=== PATIENT | female | born 1955 | race Caucasian/White ===

== ENCOUNTER → 2016-10-07 | Outpatient (CLI) | payer OTHER ==
[2016-10-11 16:05] LABS: HPV 16 Not Detected (NOTDET); HPV 18 Not Detected (NOTDET)
== END ==
LOC: MW.CHOBGYN 13:46
PROVIDERS: ATTEND Nurse Practitioner Women's Health
DX: Z11.51 Encounter for screening for human papillomavirus (HPV) (principal); E03.9 Hypothyroidism, unspecified
CPT/HCPCS: 36415; 80053; 84443; 85025; 87624; G0145

== ENCOUNTER → 2016-10-13 | Outpatient (CLI) | payer OTHER | LOC: MW.CHOBGYN 13:39 | PROVIDERS: ATTEND Nurse Practitioner Women's Health | DX: R68.89 Other general symptoms and signs (principal) | CPT/HCPCS: 36415; 80061; 82384; 83835 ==

== ENCOUNTER → 2016-11-17 | Outpatient (CLI) | payer OTHER ==
--- NOTE | 2016-11-18 10:10 | MY ---
EXAMINATION: Bilateral digital mammography utilizing CAD. HISTORY: Screening exam. Comparison is made to previous studies dated 11/13/2015, 11/07/2014, , 02/19/2012. FINDINGS: Bilateral heterogeneously dense breast tissue. No suspicious calcifications, masses or architectural distortions. No pathologic appearing lymph nodes, no abnormal skin thickening or nipple inversion. CAD highlighted regions appear normal at this time. IMPRESSION: BI-RADS category I - negative mammogram. Continued screening according to ACR-ACS guidelines liz melo. THE FALSE-NEGATIVE RATE OF MAMMOGRAM IS APPROXIMATELY 10%. MANAGEMENT OF A PALPABLE ABNORMALITY MUST BE BASED UPON CLINICAL GROUNDS. SENSITIVITY FOR DETECTION OF ABNORMALITIES IN DENSE BREASTS IS LOW. NOTE: A letter will be sent to the patient regarding findings. [facility] -- HANNA Heath [phone] - FAX [phone]
== END ==
LOC: MW.MAM 11:25
PROVIDERS: ATTEND Nurse Practitioner Women's Health
DX: Z12.31 Encounter for screening mammogram for malignant neoplasm of breast (principal)
CPT/HCPCS: G0202; G0202-26

== ENCOUNTER 2017-01-21 15:02 | Emergency (ER) | payer OTHER ==
[2017-01-21] MEDS ORDERED: Diphtheria,Pertussis(Acell),Tetanus Vaccine 0.5 ML Syringe IM ONE (15:27)
[2017-01-21] MEDS ORDERED: Bacitracin Oint 1 GM U/D Packet TOP ONE (15:28)
[2017-01-21] MEDS ORDERED: Lidocaine 1% 20 ML MDV INJECT ONE (15:28)
--- NOTE | 2017-01-21 15:35 | EDM.PDOC ---
ED HPI GENERAL MEDICAL PROBLEM - General Chief Complaint: Upper Extremity Injury/Pain Stated Complaint: LACERATION LT INDEX FINGER Time Seen by Provider: 01/21/17 15:20 - History of Present Illness INITIAL COMMENTS - FREE TEXT/NARRATIVE: HISTORY AND PHYSICAL: History of present illness: Patient is a 61-year-old female who presents with complaints of injury to her left index finger with a needle from a sewing machine. This injury does happen prior to arrival when she was using the machine and the needle went into her finger and she immediately pulled it out. She is concerned because the nail is somewhat disrupted and she has discomfort to the area. She is right-hand dominant and has no other injuries on the remainder of the digits or the hand of the left. She is not sure of her last tetanus shot. She is able to range of motion at the finger without issues. Review of systems: As per history of present illness and below otherwise all systems reviewed and negative. Past medical history: As per history of present illness and as reviewed below otherwise noncontributory. Surgical history: As per history of present illness and as reviewed below otherwise noncontributory. Social history: No reported history of drug or alcohol abuse. Family history: As per history of present illness and as reviewed below otherwise noncontributory. Physical exam: General: Well-developed well-nourished female is nontoxic and speaking clearly and easily in the ED HEENT: Atraumatic, normocephalic, negative for conjunctival pallor or scleral icterus, mucous membranes moist, throat clear, neck supple, nontender, trachea midline. Lungs: Clear to auscultation, breath sounds equal bilaterally, chest nontender. Heart: S1S2, regular rate and rhythm no overt murmurs Abdomen: Deferred Pelvis: Deferred Genitourinary: Deferred. Rectal: Deferred. Extremities: Atraumatic with full range of motion of all extremities with the exception of the left index finger where there is a disruption of the nail at the lateral aspect approximately 1/5 of the nail but does not involve the nail base and there is a superficial appearing soft tissue tuft laceration approximately 0.5 cm. There is no active bleeding and she has full range of motion at the digit. There is no palpable bony deformities and no gross soft tissue swelling. The legs are, negative for cords or calf pain. Neurovascular unremarkable. Neuro: Awake, alert, oriented. Cranial nerves II through XII unremarkable. Cerebellum unremarkable. Motor and sensory unremarkable throughout. Exam nonfocal. Diagnostics: X-ray of the left index finger Therapeutics: Tdap, wound care Procedure note: After the procedure was explained to the patient the area was prepped with that a 9 and 1% lidocaine without epinephrine was placed in a digital block fashion. The wound was reexplored and using sharp dissection the nail was lifted from the underlying adherent tissue and removed. At that point it was noted that there is a laceration in the nail bed approximately 1 cm that extends around the top of the tuft of the soft tissue for a total length of 1.5cm. #1 suture 5-0 nylon was placed in the soft tissue which reapproximated all the tissue and bleeding stopped with that. All of the skin edges were reapproximated well and bacitracin and a tube gauze was applied. Patient tolerated the procedure well and there are no complications. Impression: Puncture laceration wound of the left index finger with partial nail loss Definitive disposition and diagnosis as appropriate pending reevaluation and review of above. left index finger Pain Score (Numeric/FACES): 5 - Related Data Allergies Allergy/AdvReac Type Severity Reaction Status Date / Time No Known Allergies Allergy Verified 01/21/17 15:05 Home Meds: Home Meds Calcium Carbonate/Vitamin D3 [Calcium 600 + Vit D 400] 1 tab PO DAILY 12/07/14 [ History] DULoxetine [Cymbalta] 30 mg PO DAILY 12/07/14 [History] DULoxetine [Cymbalta] 60 mg PO DAILY 12/07/14 [History] Levothyroxine [Synthroid] 88 mcg PO ACBREAKFAST 12/07/14 [History] Multivitamin [Multi-Vitamin Daily] 1 tab PO DAILY 12/07/14 [History] [place]-3 Fatty Acids [[place]-3] 1,000 mg PO DAILY 12/07/14 [History] buPROPion [Wellbutrin XL] 0.5 tab PO DAILY 12/07/14 [History] Past Medical History HEENT History: Reports: Impaired Vision Respiratory History: Reports: COPD 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: Psychiatric History: Reports: Depression Endocrine/Metabolic History: Reports: Hypothyroidism, Obesity/BMI 30+ - Past Surgical History GI Surgical History: Reports: Other (See Below) Other GI Surgeries/Procedures: explor lap Female Surgical History: Reports: Section Musculoskeletal Surgical History: Reports: Shoulder Surgery, Other (See Below) Other Musculoskeletal Surgeries/Procedures:: leg sx Social & Family History - Family History Family Medical History: Noncontributory - Tobacco Use Smoking Status *Q: Never Smoker Years of Tobacco use: 40 - Caffeine Use Caffeine Use: Reports: Coffee Caffeine Use Comment: 2 cups daily - Alcohol Use Days Per Week of Alcohol Use: 1 Number of Drinks Per Day: 2 Total Drinks Per Week: 2 - Recreational Drug Use Recreational Drug Use: No Drug Use in Last 12 Months: No Review of Systems - Review of Systems Review Of Systems: ROS reveals no pertinent complaints other than HPI. ED EXAM, GENERAL - Physical Exam Exam: See Below (see dictation) Course - Vital Signs Last Recorded V/S: Last Vital Signs Temp 36.6 C 01/21/17 15:16 Pulse 96 01/21/17 15:16 Resp 16 01/21/17 15:16 BP 117/76 01/21/17 15:16 Pulse Ox 95 01/21/17 15:16 - Orders/Labs/Meds Orders: Active Orders 24 hr Category Date Time Status Vaccines to be Administered [RC] PER UNIT ROUTINE Care 01/21/17 15:28 Active Fingers Second Digit Lt F1 [CR] Stat Exams 01/21/17 15:28 Taken Meds: Medications Discontinued Medications Generic Name Dose Route Start Last Admin Trade Name Jm PRN Reason Stop Dose Admin Bacitracin 1 dose 01/21/17 15:28 Bacitracin Oint 1 Gm TOP 01/21/17 15:29 ONETIME ONE Diphtheria/Tetanus/Acell Pertussis 0.5 ml 01/21/17 15:27 Adacel IM 01/21/17 15:28 .ONCE ONE Lidocaine HCl 20 ml 01/21/17 15:28 Xylocaine 1% INJECT 01/21/17 15:29 ONETIME ONE Departure - Departure Time of Disposition: 16:21 Disposition: Home, Self-Care 01 Condition: Good Clinical Impression: Laceration of finger nail bed Qualifiers: Encounter type: initial encounter Qualified Code(s): S61.319A - Laceration without foreign body of unspecified finger with damage to nail, initial encounter - Discharge Information Forms: ED Department Discharge Additional Instructions: The following information is given to patients seen in the emergency department who are being discharged to home. This information is to outline your options for follow-up care. We provide all patients seen in our emergency department with a follow-up referral. The need for follow-up, as well as the timing and circumstances, are variable depending upon the specifics of your emergency department visit. If you don't have a primary care physician on staff, we will provide you with a referral. We always advise you to contact your personal physician following an emergency department visit to inform them of the circumstance of the visit and for follow-up with them and/or the need for any referrals to a consulting specialist. The emergency department will also refer you to a specialist when appropriate. This referral assures that you have the opportunity for followup care with a specialist. All of these measure are taken in an effort to provide you with optimal care, which includes your followup. Under all circumstances we always encourage you to contact your private physician who remains a resource for coordinating your care. When calling for followup care, please make the office aware that this follow-up is from your recent emergency room visit. If for any reason you are refused follow-up, please contact the [facility] emergency department at and ask to speak to the emergency department charge nurse. [facility] Primary care- Internal Medicine and Family [facility] [address] [place] [id number] [facility] Specialty clinic-Plastic Surgery and Hand Surgery Professional [address] [address] Please call and follow-up with our hand specialist in several days and keep the dressing that was placed here in the ED on for the next 24 hours. After 24 hours remove the dressing rinse with mild soap and water and pat dry. Apply bacitracin or Neosporin for 2 days and then please stop the ointment. Return to ER as needed and as discussed. Please take antibiotics as directed - My Orders Last 24 Hours: My Active Orders 01/21/17 15:28 Vaccines to be Administered [RC] PER UNIT ROUTINE Fingers Second Digit Lt F1 [CR] Stat - Assessment/Plan Last 24 Hours: My Active Orders 01/21/17 15:28 Vaccines to be Administered [RC] PER UNIT ROUTINE Fingers Second Digit Lt F1 [CR] Stat
[2017-01-21 17:08] VITALS: BP 117/81
--- NOTE | 2017-01-22 11:35 | CR ---
EXAM DATE: 01/21/17 PATIENT'S AGE: 61 Patient: SOCORRO HERRERA Facility: [place], [place] Site . Site : 1955 Study: XRay Extremity 2nd digit [id number]/21/2017 3:49:06 PM Ordering Physician: Felix Salmeron Final Report: INDICATION: Trauma. COMPARISON: None. FINDINGS/IMPRESSION: Left index finger, 3 views. Soft tissue swelling of the index finger. Age-indeterminate tiny avulsion fracture along the dorsomedial aspect of the PIP joint of the index finger. No other evidence of fracture. No dislocation. Dictated by Lnius Whitfield MD @ 01/21/2017 4:03:01 PM Dictated by: Linus Whitfield MD @ 01/21/2017 16:05:02 (Electronic Signature) Report Signed by Proxy. JERICA
== END 2017-01-21 17:07 | disposition home or self-care (01) ==
LOC: MW.ED 15:02
DX: S61.311A Laceration without foreign body of left index finger with damage to nail, initial encounter (principal); J44.9 Chronic obstructive pulmonary disease, unspecified; F32.9 Major depressive disorder, single episode, unspecified; E03.9 Hypothyroidism, unspecified; E66.9 Obesity, unspecified; Z98.890 Other specified postprocedural states; Z79.899 Other long term (current) drug therapy; Z23 Encounter for immunization; W27.3XXA Contact with needle (sewing), initial encounter; Y93.D2 Activity, sewing
CPT/HCPCS: 11750; 12001; 73140-26-F1; 73140-F1; 90471; 90715; 99283; 99283-25

== ENCOUNTER 2024-06-16 10:53 | Day surgery (SDC) | payer MEDICARE, OTHER ==
[2024-06-16] MEDS: Lactated Ringers 1,000 ML IV SCH (11:30)
[2024-06-16] MEDS ORDERED: Propofol 200 MG/20 ML SDV ONE (13:25)
[2024-06-16] MEDS ORDERED: Lidocaine 2% 5 ML SDV ONE (13:26)
[2024-06-16] MEDS ORDERED: Phenylephrine HCl In 0.9% NaCl 1 MG/10 ML Syringe ONE (13:50)
[2024-06-16 15:08] VITALS: BP 119/79; PULSE 90
== END 2024-06-16 14:50 | disposition home or self-care (01) ==
LOC: MW.SDS 10:53
PROVIDERS: ATTEND Surgery
DX: Z12.11 Encounter for screening for malignant neoplasm of colon (principal); D12.0 Benign neoplasm of cecum; D12.3 Benign neoplasm of transverse colon; D12.4 Benign neoplasm of descending colon; D12.5 Benign neoplasm of sigmoid colon; J44.9 Chronic obstructive pulmonary disease, unspecified; K21.9 Gastro-esophageal reflux disease without esophagitis; N18.9 Chronic kidney disease, unspecified; E78.00 Pure hypercholesterolemia, unspecified; E03.9 Hypothyroidism, unspecified; Z87.891 Personal history of nicotine dependence; Z79.890 Hormone replacement therapy; Z79.899 Other long term (current) drug therapy; Z80.0 Family history of malignant neoplasm of digestive organs
CPT/HCPCS: 45380; J2371; J2704; J7120; 88305; J3490